=== PATIENT | male | born 1985 | race Caucasian/White ===

== ENCOUNTER 2019-12-31 23:56 | Emergency (ER) | payer OTHER ==
--- NOTE | 2020-01-01 00:59 | ER Document Report ---
ED Medical Screen (RME) - General Chief Complaint: Chest Pain Stated Complaint: CHEST PAIN/BLOOD PRESSURE ISSUES Time Seen by Provider: 01/01/20 00:53 Primary Care Provider: JAILENE CRUM DO [Primary Care Provider] - Follow up as needed Notes: Patient is a 34-year-old male presents emergency department with a chief complaint of chest pain. Patient reports he is had intermittent chest pain for 2 weeks. Patient reports is located on the left side of his chest that radiates down the left arm and is sharp in nature. Patient reports there are no exacerbating or relieving symptoms. Patient reports tonight while sitting down he got chest tightness across his whole chest. Patient reports at that point he felt like he was going to pass out and had blurred vision. Patient reports that he does have a history of anxiety and is under a lot of stress. Patient reports that he checked his blood pressure at home and is 171/100. Patient reports a history of blood pressure problems but does not take any daily medications. TRAVEL OUTSIDE OF THE [place] IN LAST 30 DAYS: No - Related Data Allergies/Adverse Reactions: No Known Allergies Allergy (Unverified 01/01/20 00:52) Physical Exam - Vital signs Vitals: Temp Pulse Resp BP Pulse Ox 98.7 F 74 20 149/87 H 96 01/01/20 00:15 01/01/20 00:15 01/01/20 00:15 01/01/20 00:15 01/01/20 00:15 - Cardiovascular Rhythm: Regular Heart sounds: Normal auscultation, S1 appreciated, S2 appreciated Course - Re-evaluation Re-evalutation: 01/01/20 00:59 I have greeted and performed a rapid initial assessment of this patient. A comprehensive ED assessment and evaluation of the patient, analysis of test results and completion of the medical decision making process will be conducted by additional ED providers. - Vital Signs Vital signs: Temp Pulse Resp BP Pulse Ox 98.7 F 74 20 149/87 H 96 01/01/20 00:15 01/01/20 00:15 01/01/20 00:15 01/01/20 00:15 01/01/20 00:15 Doctor's Discharge - Discharge Referrals: JAILENE CRUM DO [Primary Care Provider] - Follow up as needed
[2020-01-01 01:12] LABS: ABSOLUTE EOSINOPHILS # (AUTO) 0.1 10^3/uL (0.0-0.6); ABSOLUTE LYMPHOCYTES (AUTO) 1.5 10^3/uL (0.5-4.7); ABSOLUTE MONOCYTES (AUTO) 0.5 10^3/uL (0.1-1.4); ABSOLUTE NEUT (AUTO) 3.8 10^3/uL (1.7-8.2); BASOPHILS % (AUTO) 0.8 % (0-2); HEMATOCRIT 44.7 % (37.9-51.0); HEMOGLOBIN 15.6 g/dL (13.5-17.0); LYMPHOCYTES % (AUTO) 24.8 % (13-45); MEAN CORPUSCULAR HEMOGLOBIN 31.9 pg (27.0-33.4); MEAN CORPUSCULAR VOLUME 91 fl (80-97); MONOCYTES % (AUTO) 8.2 % (3-13); PLATELET COUNT 289 10^3/uL (150-450); RED CELL DISTRIBUTION WIDTH 12.8 % (11.5-14.0); SEGMENTED NEUTROPHILS % (AUTO) 64.2 % (42-78); TOTAL CELLS COUNTED % (AUTO) 100 %; WHITE BLOOD COUNT 5.9 10^3/uL (4.0-10.5)
[2020-01-01 01:22] LABS: ALBUMIN 4.5 g/dL (3.5-5.0); ALKALINE PHOSPHATASE 60 U/L (38-126); ANION GAP 8 (5-19); ASPARTATE AMINO TRANSFERASE 39 U/L (17-59); BILIRUBIN,TOTAL 0.6 mg/dL (0.2-1.3); BLOOD UREA NITROGEN 16 mg/dL (7-20); CALCIUM 9.4 mg/dL (8.4-10.2); CARBON DIOXIDE 30 mmol/L (22-30); CHLORIDE 104 mmol/L (98-107); GLUCOSE 99 mg/dL (75-110); POTASSIUM 4.3 mmol/L (3.6-5.0); TOTAL PROTEIN 7.5 g/dL (6.3-8.2)
--- NOTE | 2020-01-01 01:37 | RADIOLOGY REPORT (SQ) ---
PA and lateral chest radiograph: 01/01/2020 12:35 AM [employer] Comparison: None available Indication: 34-year old patient with chest pain. Findings: The cardiomediastinal silhouette is normal in size.No pneumothorax is seen. No acute airspace opacities are seen. No discrete pleural effusion is apparent. Impression: No acute airspace opacities are seen.
--- NOTE | 2020-01-01 02:34 | ER Document Report ---
ED General - General Chief Complaint: Chest Pain Stated Complaint: CHEST PAIN/BLOOD PRESSURE ISSUES Time Seen by Provider: 01/01/20 00:53 Primary Care Provider: FLYNN CHEW MD [ACTIVE STAFF] - Follow up in 3-5 days JAILENE CRUM DO [NO LOCAL MD] - Follow up as needed Notes: Patient is a 34-year-old male that comes to the emergency department for chief complaint of chest pain. 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 He states the stood up and began pacing, woke up his , states that he thought he was going to pass out. He states that symptoms gradually resolved after this. He states he only feels a minimal discomfort in his chest on the left side where he can almost point to the exact spot with 1 finger (he points to the fourth and fifth intercostal space over the left pectoral). He states he thinks he might just be anxious but he wants to be sure. He also states he feels anxious and nauseated right now. He denies vomiting, fever, difficulty breathing, trauma. He denies smoking, alcohol, recreational drugs. He denies any daily medications. He denies any surgeries. He states he thinks blood clots run in the family, he thinks his grandfather had one. He denies family history of cardiac disease. He denies recent travel or surgery, denies lower extremity swelling. TRAVEL OUTSIDE OF THE [place] IN LAST 30 DAYS: No - Related Data Allergies/Adverse Reactions: No Known Allergies Allergy (Unverified 01/01/20 00:52) Past Medical History - General Information source: Patient - Social History Smoking Status: Former Smoker Frequency of alcohol use: None Drug Abuse: None Lives with: Family Family History: Reviewed & Not Pertinent Patient has suicidal ideation: No Patient has homicidal ideation: No Surgical Hx: Negative - Immunizations Immunizations up to date: Yes Hx Diphtheria, Pertussis, Tetanus Vaccination: Yes Review of Systems - Review of Systems Constitutional: No symptoms reported EENT: No symptoms reported Cardiovascular: See HPI Respiratory: No symptoms reported Gastrointestinal: No symptoms reported Genitourinary: No symptoms reported Male Genitourinary: No symptoms reported Musculoskeletal: No symptoms reported Skin: No symptoms reported Hematologic/Lymphatic: No symptoms reported Neurological/Psychological: No symptoms reported Physical Exam - Vital signs Vitals: Temp Pulse Resp BP Pulse Ox 98.7 F 74 20 149/87 H 96 01/01/20 00:15 01/01/20 00:15 01/01/20 00:15 01/01/20 00:15 01/01/20 00:15 - Notes Notes: GENERAL: Alert, interacts well. No acute distress. HEAD: Normocephalic, atraumatic. EYES: Pupils equal, round, and reactive to light. Extraocular movements intact. ENT: Oral mucosa moist, tongue midline. Oropharynx unremarkable. Airway patent. LUNGS: Clear to auscultation bilaterally, no wheezes, rales, or rhonchi. No respiratory distress. HEART: Regular rate and rhythm. No murmur ABDOMEN: Soft, non-tender. Non-distended. EXTREMITIES: Moves all 4 extremities spontaneously. No edema, normal radial and dorsalis pedis pulses bilaterally. No cyanosis. BACK: no cervical, thoracic, lumbar midline tenderness. No saddle anesthesia, normal distal neurovascular exam. Moves all extremities in full range of motion. NEUROLOGICAL: Alert and oriented x3. Normal speech. Cranial nerves II through XII grossly intact. PSYCH: Normal affect, normal mood. SKIN: Warm, dry, normal turgor. No rashes or lesions noted. Course - Re-evaluation Re-evalutation: Patient does move and speak in a jittery manner, reports to me that he feels anxious right now, however otherwise he is well-appearing. His vital signs are unremarkable including only borderline hypertension but no tachycardia or hypoxia. EKG nonspecific with no ischemic findings, chest x-ray unremarkable, CBC, chemistries, initial troponin negative. Patient was given aspirin and he was given Zofran because he states he still feels vaguely nauseated. Delta troponin negative, d-dimer negative, completely negative work-up. On evaluation discussed with the patient, he seemed very relieved. I did discuss work-up details, I did discuss anxiety component, because I still am not completely sure of the cause of patient's pain I did discuss cardiology follow- up. His heart score is 0. Discussed primary care follow-up for anxiety as well, no treatments will be given at this time, patient is asymptomatic at this time. Patient and family state understanding and agreement. Stable at time of discharge. - Vital Signs Vital signs: Temp Pulse Resp BP Pulse Ox 98.4 F 74 19 125/71 98 01/01/20 05:01 01/01/20 00:15 01/01/20 05:01 01/01/20 05:01 01/01/20 05:01 - Laboratory Result Diagrams: 01/01/20 01:00 01/01/20 01:00 - EKG Interpretation by Me Additional EKG results interpreted by me: EKG shows sinus rhythm at a rate of 68, borderline left axis deviation, no T wave inversions or ST segment changes in consecutive leads, QTC of 396. Discharge - Discharge Clinical Impression: Anxiety Chest pain Qualifiers: Chest pain type: unspecified Qualified Code(s): R07.9 - Chest pain, unspecified Condition: Stable Disposition: HOME, SELF-CARE Additional Instructions: Your work-up is reassuring and does not show any concerning finding tonight. However because I do not know the cause of your symptoms I do recommend that you follow-up with the cardiology referral for additional evaluation and management. I also recommend that you follow-up with your primary provider, discussed with them your symptoms and discussed potential treatments for anxiety. It is possible that your symptoms tonight were from a panic attack, see additional instructions on this below. Return for any concerning or worsening symptoms including passing out, severe worsening pain, difficulty breathing, fever, vomiting, etc. Panic Attack The cause of panic attacks is unknown. Symptoms can include chest pain, shortness of breath, palpitations, sweats, and a sense of smothering or impending doom. In time, the panic attacks can lead to generalized anxiety and phobias. Because the symptoms can mimic heart attack, pulmonary embolism, and other serious diseases, the physician has evaluated you for these conditions. There is no evidence of a serious problem. An acute panic attack usually goes away by itself without treatment. A severe attack can be treated with medicine to calm you. Long-term, antidepressant medicines may help prevent attacks. Counselling can also be very beneficial in dealing with panic attacks. Panic attacks are less likely if you are getting regular exercise, proper diet, and plenty of sleep. It's normal for panic attacks to cause many frightening symptoms. However, you should call or return if your symptoms change significantly or if you are worsening. Referrals: JAILENE CRUM, [NO LOCAL MD] - Follow up as needed FLYNN CHEW MD [ACTIVE STAFF] - Follow up in 3-5 days
[2020-01-01] MEDS ORDERED: ASPIRIN 81 MG TABLET, CHEWABLE PO ONE (02:45)
[2020-01-01] MEDS ORDERED: ONDANSETRON 4 MG TAB.RAPDIS PO ONE (02:45)
[2020-01-01 05:11] VITALS: BP 125/71
--- NOTE | 2020-01-01 14:53 | EKG REPORT ---
SEVERITY:- ABNORMAL ECG - SINUS RHYTHM LEFT ANTERIOR FASCICULAR BLOCK : Confirmed by: Galina Ridley MD 01-Jan-2020 14:51:51
== END 2020-01-01 05:42 | disposition home or self-care (01) ==
LOC: ER 23:56
DX: F41.9 Anxiety disorder, unspecified (principal); R07.9 Chest pain, unspecified; R11.0 Nausea; R20.2 Paresthesia of skin; R42 Dizziness and giddiness; Z87.891 Personal history of nicotine dependence
CPT/HCPCS: 93005; 99285; 36415; 85025; 80053; 84484; 85379; 71046; 93010; S0119